=== PATIENT | male | born 1995 | race Two or more races ===

== ENCOUNTER 2018-11-04 14:37 | Emergency (ER) | payer OTHER ==
[~2018-11-04] VITALS: Ht 162.6 cm; Wt 56.2 kg
[2018-11-04] MEDS ORDERED: HYDROcodone-ACET 5/325MG TAB PO ONE (14:45)
[2018-11-04 14:50] VITALS: BP 129/79
[2018-11-04] MEDS ORDERED: diphenhdrAMINE HCL 25 MG CAP PO ONE (15:15)
[2018-11-04] MEDS ORDERED: cefTRIAXone SOD 1,000 MG VL IM ONE (15:15)
[2018-11-04] MEDS ORDERED: KETOROLAC TROMETH 60MG/2ML VIAL IM ONE (15:15)
[2018-11-04] MEDS ORDERED: LIDOCAINE 1% HCL (LOCAL ANESTH.) INJ 20ML MDV IJ ONE (16:30)
[2018-11-04] MEDS ORDERED: NEOMYCIN-BACITRACIN-POLYM UNITDOSE PKG TOP OINT TOP ONE (16:30)
== END 2018-11-04 17:02 | disposition home or self-care (01) ==
LOC: ER 14:37
DX: S62.232A Other displaced fracture of base of first metacarpal bone, left hand, initial encounter for closed fracture (principal); S61.213A Laceration without foreign body of left middle finger without damage to nail, initial encounter; S61.215A Laceration without foreign body of left ring finger without damage to nail, initial encounter; V43.52XA Car driver injured in collision with other type car in traffic accident, initial encounter; Y93.89 Activity, other specified; Y92.89 Other specified places as the place of occurrence of the external cause; Y99.8 Other external cause status
CPT/HCPCS: 12042; 29130; 73090; 73130; 96372; 99284; J0696; J1885